=== PATIENT | female | born 1975 | race Caucasian/White ===

== ENCOUNTER 2017-11-18 00:55 | Inpatient (IN) | payer MEDICAID ==
[~2017-11-18] VITALS: Ht 170.2 cm; Wt 59.9 kg
[2017-11-18 02:31] LABS: BASOPHILS % (AUTO) 0.5 % (0.0-2.0); HEMATOCRIT 34.6 % (31.2-41.9); HEMOGLOBIN 11.7 g/dL (10.9-14.3); LYMPHOCYTES # (AUTO) 2.1 K/uL (20.0-40.0); LYMPHOCYTES % (AUTO) 22.4 % (20.5-51.5); MEAN CORPUSCULAR HEMOGLOBIN 31.1 uug (24.7-32.8); MEAN CORPUSCULAR HGB CONC 34 g/dL (32.3-35.6); MEAN CORPUSCULAR VOLUME 91.9 fL (75.5-95.3); MONOCYTES # (AUTO) 0.5 K/uL (2.0-10.0); NEUTROPHILS # (AUTO) 6.8 K/uL (1.8-8.9); NEUTROPHILS % (AUTO) 72.1 % (38.5-71.5); PLATELET COUNT (AUTO) 271 K/uL (179-408); RED BLOOD CELL COUNT(AUTO) 3.77 MIL/uL (3.63-4.92); WHITE BLOOD COUNT (AUTO) 9.5 K/uL (3.8-11.8)
[2017-11-18 02:41] LABS: ETHANOL < 3 MG/DL (0-0)
[2017-11-18 02:43] LABS: CARBON DIOXIDE 30 mmol/L (21-32); CHLORIDE 110 mmol/L (98-107); CREATININE 0.5 mg/dL (0.6-1.3); GLUCOSE 74 mg/dL (74-106); POTASSIUM 3.8 mmol/L (3.5-5.1); UREA NITROGEN, BLOOD 13 mg/dL (7-18)
[2017-11-18 02:57] LABS: ACETAMINOPHEN 7.6 ug/mL (10-30); ALANINE AMINOTRANSFERASE 32 U/L (14-59); ALKALINE PHOSPHATASE 134 U/L (50-136); ASPARTATE AMINOTRANSFERASE 27 U/L (15-37); BILIRUBIN,DIRECT 0.5 mg/dL (0.0-0.2); BILIRUBIN,TOTAL 0.8 mg/dL (0.2-1.0); TOTAL PROTEIN, SERUM 4.4 g/dL (6.4-8.2)
[2017-11-18 03:38] LABS: *BLOOD, URINE Trace-intact (NEGATIVE); *CLARITY,URINE CLOUDY (CLEAR); *COLOR,URINE YELLOW (YELLOW); *KETONES,URINE 3+ (NEGATIVE); *PROTEIN,URINE 1+ (NEGATIVE); *UROBILINOGEN,URINE >=8.0 E.U./dl (NORMAL); LEUKOCYTE ESTERASE ,URINE TRACE (NEGATIVE); NITRITE, URINE POSITIVE (NEGATIVE); UGLUCOSE NEGATIVE (NEGATIVE)
[2017-11-18 03:40] LABS: *BILIRUBIN,URIN 1+ (NEGATIVE)
[2017-11-18 03:50] LABS: BACTERIA,URINE MANY /HPF (NONE SEEN); SQUAMOUS EPITHELIAL CELL,UR FEW /HPF (NONE SEEN)
[2017-11-18 03:54] LABS: *AMPHETAMINE, URINE POSITIVE (NEGATIVE); *BARBITURATE, URINE NEGATIVE (NEGATIVE); *CANNABINOID, URINE POSITIVE (NEGATIVE); *COCCAINE, URINE NEGATIVE (NEGATIVE); *OPIATE, URINE POSITIVE (NEGATIVE); *PHENCYCLIDINE SCREEN,URINE NEGATIVE (NEGATIVE)
[2017-11-18 04:00] VITALS: BP 111/80
[2017-11-18] MEDS ORDERED: IV NORMAL SALINE 1000 ML BAG IV ONE (04:15)
[2017-11-18] MEDS ORDERED: LIDOCAINE HCL 1% 20 ML VIAL IJ ONE (04:30)
[2017-11-18] MEDS ORDERED: ACETAMINOPHEN 325 MG TABLET PO PRN (05:00)
[2017-11-18] MEDS ORDERED: MAGNESIUM HYDROXIDE 30 ML LIQUID UDC PO PRN (05:00)
[2017-11-18] MEDS ORDERED: ONDANSETRON 4 MG/2 ML VIAL IV PRN (05:00)
[2017-11-18] MEDS ORDERED: Z GUARD REMEDY PASTE 57 GM TUBE TOP PRN (05:00)
[2017-11-18] MEDS ORDERED: NEOMY/BACITRAC/POLYMI OINT 28.35 GM TUBE TOP STA (05:38)
[2017-11-18] MEDS ORDERED: NEOMY/BACITRA/POLYMYXIN B OINT UD PACKET TP ONE (06:01)
[2017-11-18] MEDS: IV NS 1000 ML 1,000 ML IV PRN (08:55)
[2017-11-18] MEDS: HYDROCODONE/APAP 5-325MG TABLET PO PRN ×3 (08:56→21:24)
[2017-11-18] MEDS ORDERED: FURO-152 PO (09:00)
[2017-11-18] MEDS ORDERED: POTA10TA10 PO (09:00)
[2017-11-18 10:50] VITALS: BP 107/77
[2017-11-18] MEDS ORDERED: Z GUARD REMEDY PASTE 57 GM TUBE TOP SCH (14:45)
[2017-11-18 14:47] VITALS: BP 137/87
[2017-11-18 21:20] VITALS: BP 101/72
[2017-11-19] MEDS: HYDROCODONE/APAP 5-325MG TABLET PO PRN ×4 (01:46→20:44)
[2017-11-19 04:00] VITALS: BP 111/75
[2017-11-19] MEDS: IV NS 1000 ML 1,000 ML IV PRN ×2 (06:08→17:09)
[2017-11-19 10:17] LABS: BASOPHILS % (AUTO) 0.1 % (0.0-2.0); LYMPHOCYTES # (AUTO) 2.1 K/uL (20.0-40.0); MONOCYTES # (AUTO) 0.7 K/uL (2.0-10.0); NEUTROPHILS # (AUTO) 25.3 K/uL (1.8-8.9)
[2017-11-19 10:28] LABS: HEMATOCRIT 36.2 % (31.2-41.9); LYMPHOCYTES % (AUTO) 7.4 % (20.5-51.5); MEAN CORPUSCULAR HEMOGLOBIN 29.8 uug (24.7-32.8); MEAN CORPUSCULAR HGB CONC 33 g/dL (32.3-35.6); MEAN CORPUSCULAR VOLUME 90.2 fL (75.5-95.3); MONOCYTES % (AUTO) 2.5 % (0.0-11.0); PLATELET COUNT (AUTO) 238 K/uL (179-408); RED BLOOD CELL COUNT(AUTO) 4.02 MIL/uL (3.63-4.92)
[2017-11-19 10:32] LABS: WHITE BLOOD COUNT (AUTO) 28.1 K/uL (3.8-11.8)
[2017-11-19 10:33] LABS: BILIRUBIN,TOTAL 0.8 mg/dL (0.2-1.0); CREATININE 0.7 mg/dL (0.6-1.3); MAGNESIUM 1.5 mg/dL (1.8-2.4); PHOSPHOROUS 2.6 mg/dL (2.5-4.9); POTASSIUM 3.5 mmol/L (3.5-5.1); TOTAL PROTEIN, SERUM 4.5 g/dL (6.4-8.2)
[2017-11-19 12:24] VITALS: BP 111/79
[2017-11-19 12:28] LABS: BAND % (MANUAL) 10 % (0-10); LYMPHOCYTES % (MANUAL) 6 % (20-40); MONOCYTES % (MANUAL) 2 % (2-10); NEUTROPHILS % (MANUAL) 82 % (42-75)
[2017-11-19 14:14] LABS: *BLOOD, URINE 1+ (NEGATIVE); *CLARITY,URINE CLOUDY (CLEAR); *COLOR,URINE Brown (YELLOW); *KETONES,URINE TRACE (NEGATIVE); LEUKOCYTE ESTERASE ,URINE NEGATIVE (NEGATIVE); NITRITE, URINE POSITIVE (NEGATIVE); UGLUCOSE TRACE (NEGATIVE)
[2017-11-19 14:28] LABS: *BILIRUBIN,URIN 2+ (NEGATIVE); *PROTEIN,URINE 1+ (NEGATIVE)
[2017-11-19 14:30] LABS: BACTERIA,URINE MANY /HPF (NONE SEEN); MUCUS,URINE MANY /LPF (0-FEW); SQUAMOUS EPITHELIAL CELL,UR FEW /HPF (NONE SEEN)
[2017-11-19 14:41] LABS: *CREATININE,URINE 297.8 mg/dL (30-125); *URINE TOTAL PROTEIN RANDOM 20.7 mg/dL (<150/24HR)
[2017-11-19 15:05] VITALS: BP 108/64
[2017-11-19 20:01] VITALS: BP 105/72
[2017-11-20 05:41] VITALS: BP 101/62
[2017-11-20] MEDS: HYDROCODONE/APAP 5-325MG TABLET PO PRN ×2 (07:31→12:55)
[2017-11-20] MEDS: IV NS 1000 ML 1,000 ML IV PRN ×2 (07:33→20:57)
[2017-11-20 10:43] VITALS: BP 103/65
[2017-11-20 11:14] LABS: HEPATITIS B SURFACE AB Non Reactive (.); HEPATITIS B SURFACE AG Negative (Negative)
[2017-11-20 16:21] VITALS: BP 97/67
[2017-11-20] MEDS: QUETIAPINE FUMARATE 25 MG TABLET PO PRN ×2 (16:35→21:00)
[2017-11-20 20:00] VITALS: BP 97/76
[2017-11-21] VITALS (35 sets, daily range): BP systolic 40–216; BP diastolic 18–183
[2017-11-21] MEDS: HYDROCODONE/APAP 5-325MG TABLET PO PRN (01:09)
[2017-11-21] MEDS: QUETIAPINE FUMARATE 25 MG TABLET PO PRN (02:49)
[2017-11-21] MEDS ORDERED: VANCOMYCIN IV 1 G in PREMIXED 0 EACH IV SCH (08:45)
[2017-11-21 09:52] LABS: ABG BASE EXCESS -11.1 mmol/L; ABG HCO3 11.9 mmol/L; ABG PCO2 19.9 mmHg (35.0-45.0); ABG PH 7.395 (7.350-7.450); ABG PO2 99.9 mmHg (75.0-100.0); ABG SITE RIGHT RADIAL; ABG TOTAL HEMOGLOBIN 10.4 G/dL (12.0-16.0); COHb 0.4 % (0.5-1.5); MetHb 0.3 % (0.0-1.5); O2Hb 96.1 % (94.0-97.0); VENT MODE Room Air
[2017-11-21] MEDS: PIPERACILLIN SODIUM/TAZOBACTAM 4.5 G in IV DEXTROSE 5% 50 ML IV SCH ×2 (10:23→18:08)
[2017-11-21 12:57] LABS: BILIRUBIN,TOTAL 1.2 mg/dL (0.2-1.0); CREATININE 1.3 mg/dL (0.6-1.3); MAGNESIUM 1.6 mg/dL (1.8-2.4); PHOSPHOROUS 2.6 mg/dL (2.5-4.9); TOTAL PROTEIN, SERUM 3.3 g/dL (6.4-8.2)
[2017-11-21 13:01] LABS: HEMOGLOBIN 10.6 g/dL (10.9-14.3); MONOCYTES # (AUTO) 0.1 K/uL (2.0-10.0); NEUTROPHILS # (AUTO) 1.2 K/uL (1.8-8.9)
[2017-11-21 13:03] LABS: BASOPHILS % (AUTO) 0.2 % (0.0-2.0); EOSINOPHILS % (AUTO) 1.3 % (0.0-7.0); HEMATOCRIT 32.7 % (31.2-41.9); LYMPHOCYTES # (AUTO) 0.5 K/uL (20.0-40.0); LYMPHOCYTES % (AUTO) 30.6 % (20.5-51.5); MEAN CORPUSCULAR HEMOGLOBIN 30.4 uug (24.7-32.8); MEAN CORPUSCULAR HGB CONC 32 g/dL (32.3-35.6); MEAN CORPUSCULAR VOLUME 94.1 fL (75.5-95.3); MONOCYTES % (AUTO) 2.8 % (0.0-11.0); NEUTROPHILS % (AUTO) 65.1 % (38.5-71.5); PLATELET COUNT (AUTO) 147 K/uL (179-408); RED BLOOD CELL COUNT(AUTO) 3.48 MIL/uL (3.63-4.92)
[2017-11-21 13:04] LABS: WHITE BLOOD COUNT (AUTO) 1.8 K/uL (3.8-11.8)
[2017-11-21] MEDS ORDERED: IV NS 1000 ML 1,000 ML IV STA (13:06)
[2017-11-21] MEDS: DEXTROSE 50% 50 ML DISP.SYRIN IV PRN ×2 (13:40→14:20)
[2017-11-21] MEDS ORDERED: BLOOD SUGAR DIAGNOSTIC 1 EACH STRIP VI SCH ×3 (13:45→16:30)
[2017-11-21] MEDS ORDERED: INSULIN REGULAR, HUMAN 300 UNIT/3 ML VIAL SQ PRN ×3 (13:45→15:00)
[2017-11-21] MEDS ORDERED: INSULIN REGULAR, HUMAN 300 UNITS/3 ML VIAL SQ PRN (13:45)
[2017-11-21] MEDS ORDERED: DEXTROSE 50% 50 ML DISP.SYRIN ONE (13:53)
[2017-11-21] MEDS: VANCOMYCIN IV 1 G in PREMIXED 0 EACH IV SCH ×2 (14:08→23:47)
[2017-11-21] MEDS ORDERED: MEROPENEM 0.5 G in IV NORMAL SALINE 50 ML IV SCH (14:30)
[2017-11-21] MEDS ORDERED: SODIUM BICARBONATE 8.4% 50 MEQ/50 ML DISP.SYRIN IV ONE ×3 (14:30→22:42)
[2017-11-21] MEDS ORDERED: IV 10% DEXTROSE 1,000 ML IV PRN (14:45)
[2017-11-21] MEDS: SODIUM BICARBONATE 8.4% 100 MEQ in IV D5W 1000ML 1,000 ML IV PRN ×2 (14:51→19:41)
[2017-11-21] MEDS ORDERED: DESMOPRESSIN INJ 30 MCG in IV NORMAL SALINE 50 ML IV ONE (15:00)
[2017-11-21] MEDS ORDERED: DEXTROSE 50% 50 ML DISP.SYRIN IV PRN ×2 (15:00→18:00)
[2017-11-21] MEDS ORDERED: MORPHINE SULFATE 2 MG/1 ML DISP.SYRIN IV PRN (15:30)
[2017-11-21] MEDS ORDERED: MORPHINE SULFATE 4 MG/1 ML DISP.SYRIN IV PRN (15:30)
[2017-11-21] MEDS: NOREPINEPHRINE BITARTRATE 8 MG in IV DEXTROSE 5% 500 ML IV PRN ×2 (15:43→21:48)
[2017-11-21 16:01] LABS: BAND % (MANUAL) 48 % (0-10); MONOCYTES % (MANUAL) 5 % (2-10); NEUTROPHILS % (MANUAL) 5 % (42-75)
[2017-11-21 16:02] LABS: METAMYELOCYTES % 10 % (0-1); MYELOCYTES % 2 % (0-0)
[2017-11-21 16:06] LABS: LYMPHOCYTES % (MANUAL) 30 % (20-40)
[2017-11-21] MEDS ORDERED: NORMAL SALINE IV SCH (17:00)
[2017-11-21] MEDS ORDERED: GENTAMICIN SULFATE IV SCH (17:00)
[2017-11-21 17:25] LABS: BASOPHILS % (AUTO) 0.1 % (0.0-2.0); EOSINOPHILS % (AUTO) 1.1 % (0.0-7.0); HEMATOCRIT 32.5 % (31.2-41.9); HEMOGLOBIN 10.4 g/dL (10.9-14.3); LYMPHOCYTES # (AUTO) 0.4 K/uL (20.0-40.0); LYMPHOCYTES % (AUTO) 16.6 % (20.5-51.5); MEAN CORPUSCULAR HEMOGLOBIN 30.6 uug (24.7-32.8); MEAN CORPUSCULAR HGB CONC 32 g/dL (32.3-35.6); MEAN CORPUSCULAR VOLUME 95.2 fL (75.5-95.3); MONOCYTES % (AUTO) 0.6 % (0.0-11.0); NEUTROPHILS % (AUTO) 81.6 % (38.5-71.5); PLATELET COUNT (AUTO) 119 K/uL (179-408); RED BLOOD CELL COUNT(AUTO) 3.42 MIL/uL (3.63-4.92)
[2017-11-21 17:29] LABS: CREATININE 1.5 mg/dL (0.6-1.3)
[2017-11-21 17:34] LABS: WHITE BLOOD COUNT (AUTO) 2.5 K/uL (3.8-11.8)
[2017-11-21] MEDS: BLOOD SUGAR DIAGNOSTIC 1 EACH STRIP VI SCH ×3 (18:07→23:52)
[2017-11-21] MEDS: MAGNESIUM SULFATE/D5W 100 ML IV SCH ×2 (20:14→21:24)
[2017-11-21] MEDS ORDERED: LEVOFLOXACIN 500 MG/D5W 500 MG in PREMIXED 1 EACH IV SCH (21:00)
[2017-11-21 21:18] LABS: IRON, SERUM 37 ug/dL (50-175)
[2017-11-21 21:29] LABS: ABG BASE EXCESS -16.6 mmol/L; ABG HCO3 10.1 mmol/L; ABG PCO2 27.2 mmHg (35.0-45.0); ABG PH 7.188 (7.350-7.450); ABG PO2 71.4 mmHg (75.0-100.0); ABG SITE RIGHT RADIAL; ABG TOTAL HEMOGLOBIN 10.6 G/dL (12.0-16.0); MetHb 0.1 % (0.0-1.5); O2Hb 87.1 % (94.0-97.0); VENT MODE VENT - A/C; VT, ABG 500 mL
[2017-11-21] MEDS ORDERED: LEVOFLOXACIN 500 MG/D5W 100 ML ONE (21:44)
[2017-11-21 22:01] LABS: FERRITIN 121 ng/mL (8-252)
[2017-11-21 22:07] LABS: LYMPHOCYTES % (MANUAL) 20 % (20-40); METAMYELOCYTES % 14 % (0-1); MONOCYTES % (MANUAL) 4 % (2-10); MYELOCYTES % 2 % (0-0); NEUTROPHILS % (MANUAL) 4 % (42-75)
[2017-11-21 22:09] LABS: BAND % (MANUAL) 56 % (0-10)
[2017-11-21] MEDS: SODIUM BICARBONATE 8.4% 150 MEQ in IV D5W 1000ML 1,000 ML IV PRN (22:30)
[2017-11-22] VITALS (38 sets, daily range): BP systolic 0–121; BP diastolic 0–89
[2017-11-22] MEDS: PROPOFOL 100 ML IV PRN ×2 (00:48→07:19)
[2017-11-22] MEDS: NOREPINEPHRINE BITARTRATE 8 MG in IV DEXTROSE 5% 500 ML IV PRN ×2 (02:30→06:05)
[2017-11-22] MEDS: PIPERACILLIN SODIUM/TAZOBACTAM 4.5 G in IV DEXTROSE 5% 50 ML IV SCH (03:58)
[2017-11-22] MEDS: BLOOD SUGAR DIAGNOSTIC 1 EACH STRIP VI SCH (04:06)
[2017-11-22 04:44] LABS: BASOPHILS % (AUTO) 0.2 % (0.0-2.0); EOSINOPHILS % (AUTO) 0.6 % (0.0-7.0); HEMATOCRIT 26.8 % (31.2-41.9); HEMOGLOBIN 8.4 g/dL (10.9-14.3); LYMPHOCYTES # (AUTO) 0.9 K/uL (20.0-40.0); LYMPHOCYTES % (AUTO) 15.6 % (20.5-51.5); MEAN CORPUSCULAR HEMOGLOBIN 30.4 uug (24.7-32.8); MEAN CORPUSCULAR HGB CONC 32 g/dL (32.3-35.6); MEAN CORPUSCULAR VOLUME 96.4 fL (75.5-95.3); MONOCYTES # (AUTO) 0.1 K/uL (2.0-10.0); MONOCYTES % (AUTO) 1.8 % (0.0-11.0); NEUTROPHILS # (AUTO) 4.7 K/uL (1.8-8.9); NEUTROPHILS % (AUTO) 81.8 % (38.5-71.5); PLATELET COUNT (AUTO) 54 K/uL (179-408); RED BLOOD CELL COUNT(AUTO) 2.78 MIL/uL (3.63-4.92); WHITE BLOOD COUNT (AUTO) 5.7 K/uL (3.8-11.8)
[2017-11-22 04:46] LABS: BILIRUBIN,TOTAL 1.1 mg/dL (0.2-1.0); CREATININE 1.7 mg/dL (0.6-1.3); PHOSPHOROUS 3.4 mg/dL (2.5-4.9); POTASSIUM 3.4 mmol/L (3.5-5.1); TOTAL PROTEIN, SERUM 3.1 g/dL (6.4-8.2)
[2017-11-22] MEDS ORDERED: NOREPINEPHRINE BITARTRATE 4 MG/4 ML VIAL IV ONE (05:54)
[2017-11-22] MEDS ORDERED: SODIUM BICARBONATE 8.4% 50 MEQ/50 ML DISP.SYRIN IV ONE (05:55)
[2017-11-22 06:00] LABS: BAND % (MANUAL) 35 % (0-10); LYMPHOCYTES % (MANUAL) 21 % (20-40); MONOCYTES % (MANUAL) 1 % (2-10); MYELOCYTES % 2 % (0-0); NEUTROPHILS % (MANUAL) 40 % (42-75)
[2017-11-22 06:01] LABS: ABG BASE EXCESS -10.2 mmol/L; ABG HCO3 13.9 mmol/L; ABG PCO2 21.7 mmHg (35.0-45.0); ABG PH 7.425 (7.350-7.450); ABG PO2 132.7 mmHg (75.0-100.0); ABG SITE LEFT RADIAL; ABG TOTAL HEMOGLOBIN 2.7 G/dL (12.0-16.0); COHb 3.9 % (0.5-1.5); MetHb 0.2 % (0.0-1.5); O2Hb 95.2 % (94.0-97.0); VENT MODE VENT - A/C; VT, ABG 500 mL
[2017-11-22] MEDS: SODIUM BICARBONATE 8.4% 150 MEQ in IV D5W 1000ML 1,000 ML IV PRN (06:05)
[2017-11-22] MEDS ORDERED: ETOMIDATE 20 MG/10 ML VIAL IV ONE (07:53)
[2017-11-22] MEDS ORDERED: NOREPINEPHRINE BITARTRATE 16 MG in IV DEXTROSE 5% 500 ML IV PRN (09:45)
[2017-11-24 09:09] LABS: A/G RATIO 0.4 (0.7-1.7); ALBUMIN 0.9 g/dL (2.9-4.4); ALPHA-1-GLOBULIN 0.2 g/dL (0.0-0.4); ALPHA-2-GLOBULIN 0.3 g/dL (0.4-1.0); BETA GLOBULIN 0.5 g/dL (0.7-1.3); GLOBULIN, TOTAL 2.1 g/dL (2.2-3.9); M-SPIKE Not Observed g/dL (Not Observed)
== END 2017-11-22 12:00 | disposition expired | DRG 720 ==
LOC: ER 01:02 → MED 05:20 → TELE 11-20 10:31 → TELE-TD 11-21 09:29 → CCU 11-21 19:20
PROVIDERS: ADMIT Internal Medicine
PROC: 0HDRXZZ Extraction of Toe Nail, External Approach (ICD-10-PCS; principal; 2017-11-18)
PROC: 05H533Z Insertion of Infusion Device into Right Subclavian Vein, Percutaneous Approach (ICD-10-PCS; 2017-11-19)
PROC: 06HY33Z Insertion of Infusion Device into Lower Vein, Percutaneous Approach (ICD-10-PCS; 2017-11-21)
PROC: 5A1935Z Respiratory Ventilation, Less than 24 Consecutive Hours (ICD-10-PCS; 2017-11-21)
PROC: 0BH17EZ Insertion of Endotracheal Airway into Trachea, Via Natural or Artificial Opening (ICD-10-PCS; 2017-11-21)
PROC: 5A12012 Performance of Cardiac Output, Single, Manual (ICD-10-PCS; 2017-11-21)
PROC: 30243L1 Transfusion of Nonautologous Fresh Plasma into Central Vein, Percutaneous Approach (ICD-10-PCS; 2017-11-22)
DX: A41.9 Sepsis, unspecified organism (principal); J96.00 Acute respiratory failure, unspecified whether with hypoxia or hypercapnia; N17.0 Acute kidney failure with tubular necrosis; D65 Disseminated intravascular coagulation [defibrination syndrome]; R65.21 Severe sepsis with septic shock; J15.9 Unspecified bacterial pneumonia; G92 Toxic encephalopathy; D61.818 Other pancytopenia; R17 Unspecified jaundice; S91.202A Unspecified open wound of left great toe with damage to nail, initial encounter; E88.09 Other disorders of plasma-protein metabolism, not elsewhere classified; W22.03XA Walked into furniture, initial encounter; Y92.89 Other specified places as the place of occurrence of the external cause; F15.10 Other stimulant abuse, uncomplicated; F11.10 Opioid abuse, uncomplicated; F12.10 Cannabis abuse, uncomplicated; N39.0 Urinary tract infection, site not specified; B96.20 Unspecified Escherichia coli [E. coli] as the cause of diseases classified elsewhere; F29 Unspecified psychosis not due to a substance or known physiological condition; E87.2 Acidosis; E77.8 Other disorders of glycoprotein metabolism
CPT/HCPCS: 36415; 36569; 36600; 70030-TC; 70450; 70490; 71045; 71250; 73660; 76700; 76770; 80307; 82746; 83550; 83605; 83735; 84100; 84155; 84156; 84165; 84300; 84443; 84703; 85025; 85610; 85730; 86704; 86706; 86803; 86850; 86900; 86901; 87040; 87070; 87077; 87086; 87340; 87400; 87536; 93005; 93307; 94002; A4217; A4663; C1751; G0480; G0480-TC; J1265; J1580; J1815; J1956; J2270; J2405; J2543; J2597; J3370; J3475; J3490; J7030; J7040; J7050; J7060; J7070; P9016-BL; P9017-BL